=== PATIENT | male | born 1985 | race Two or more races ===

== ENCOUNTER 2020-06-09 05:49 | Emergency (ER) | payer SELFPAY ==
[~2020-06-09] VITALS: Ht 167.6 cm; Wt 108.4 kg
[2020-06-09 06:05] VITALS: BP 143/97
== END 2020-06-09 07:50 | disposition left against medical advice (07) ==
LOC: ER 05:49
DX: R07.89 Other chest pain (principal); Z53.21 Procedure and treatment not carried out due to patient leaving prior to being seen by health care provider
CPT/HCPCS: 71045